=== PATIENT | male | born 1980 | race Caucasian/White ===

== ENCOUNTER 2017-07-07 09:40 | Emergency (ER) | payer OTHER ==
[2017-07-07 10:07] VITALS: BP 132/73; PULSE 87; TEMP 98; BMI 34.4
[2017-07-07] MEDS ORDERED: ACETAMINOPHEN 325 MG TABLET (FP) PO ONE (10:46)
[2017-07-07 10:49] LABS: PH,URINE 5.5 (5.0-8.0); URINE APPEARANCE CLEAR; URINE BILIRUBIN NEGATIVE (NEGATIVE); URINE BLOOD 3+ (NEGATIVE); URINE COLOR LT. YELLOW; URINE GLUCOSE (UA) NEGATIVE (NEGATIVE); URINE KETONE NEGATIVE (NEGATIVE); URINE NITRITE NEGATIVE (NEGATIVE); URINE PROTEIN TRACE (NEGATIVE); URINE UROBILINOGEN 0.2 mg/dL (0.2-1.0)
[2017-07-07] MEDS ORDERED: ACETAMINOPHEN 325 MG TABLET (FP) ONE (10:49)
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
[2017-07-07 11:04] LABS: GRANULAR CASTS 13 /lpf; URINE HYALINE CAST 3 /lpf; URINE MUCUS RARE; URINE RBC 1 /hpf (0-3); URINE WBC 1 /hpf (3-5)
[2017-07-07 17:52] LABS: URINE LEUK ESTERASE Negative (NEGATIVE)
== END 2017-07-07 12:23 | disposition left against medical advice (07) ==
LOC: JER 09:40
DX: R10.31 Right lower quadrant pain (principal); Z90.5 Acquired absence of kidney
CPT/HCPCS: 81003; 81015; 87086; 99283-25